=== PATIENT | female | born 1995 | race Asian ===

== ENCOUNTER → 2018-05-08 | Outpatient (CLI) | payer OTHER ==
[~2018-05-08] MED LIST: NOHOMEMEDICATIONS; NORCO 5-325 TA1 EACH PO; UNICOMPLEX M TA1 TA1 PO; VITAMINC500 PO
== END ==
LOC: RAD 10:39
DX: M54.41 Lumbago with sciatica, right side (principal); N63.20 Unspecified lump in the left breast, unspecified quadrant

== ENCOUNTER → 2018-09-20 | Outpatient (CLI) | payer BC, OTHER | LOC: RAD 08:35 | DX: S63.591A Other specified sprain of right wrist, initial encounter (principal); X58.XXXA Exposure to other specified factors, initial encounter; Y93.89 Activity, other specified; Y92.89 Other specified places as the place of occurrence of the external cause; Y99.8 Other external cause status ==

== ENCOUNTER → 2019-02-19 | Outpatient (CLI) | payer BC, OTHER | LOC: CAT 09:33 | DX: R31.9 Hematuria, unspecified (principal); R11.0 Nausea; Z91.040 Latex allergy status ==

== ENCOUNTER → 2020-10-20 | Outpatient (CLI) | payer BC, OTHER | LOC: ULTRA 13:51 | PROVIDERS: ATTEND Family Medicine | DX: N88.8 Other specified noninflammatory disorders of cervix uteri (principal); E28.9 Ovarian dysfunction, unspecified; N92.0 Excessive and frequent menstruation with regular cycle; R79.89 Other specified abnormal findings of blood chemistry ==